=== PATIENT | male | born 1975 | race Caucasian/White ===

== ENCOUNTER → 2018-06-10 | Day surgery (SDC) | payer OTHER ==
[~2018-06-10] MED LIST: FENTANYL CITRATE/PF 100MCG/2 ML INJ ONE; GLUCAGON FOR INJ 1 MG VIAL ONE; HYOSCYAMINE SULFATE 0.5 MG/ML INJ ONE; LIDOCAINE HCL 2% LOCAL INJ 5 ML SDV VIAL INJ ONE; MIDAZOLAM HCL 2 MG/2 ML VIAL ONE; PROPOFOL IV EMULSION 10 MG/ML 50 ML VIAL ONE
[2018-06-10 15:45] VITALS: BP 117/82
--- NOTE | 2018-06-10 22:42 | Operative Report ---
DATE OF PROCEDURE: 06/10/2018 SURGEON: Rahul Dominguez MD PROCEDURES: Colonoscopy and polypectomy. INDICATION FOR COLONOSCOPY: Progressive constipation, crampy lower abdominal pain, history of bright red blood per rectum. MEDICATIONS: The patient was done under MAC. Please see anesthesiologist's note. PROCEDURE IN DETAIL: With the patient in left lateral decubitus position, a flexible fiberoptic Olympus colonoscope was inserted into the rectum with ease and advanced all the way to the cecum. It was then withdrawn slowly. Mucosa overlying the cecum, ascending colon, and transverse colon other than for a scattered diverticular disease appeared to be within normal limits. Diverticular disease was also noted in the left colon. Two polyps were snared from the descending colon. One polyp was snared. One polyp was hot biopsied from the sigmoid colon. Three polyps were hot biopsied from the rectum. The scope was then retroflexed into the distal rectum. Small internal hemorrhoids were noted, none of which was actively bleeding. The scope was then straightened out, it was subsequently withdrawn. The patient tolerated procedure well. IMPRESSION: 1. Diverticulosis. 2. Descending colon polyps x2 snared. 3. Sigmoid colon polyps x2, one snared, one hot biopsied. 4. Rectal polyps x3, hot biopsied. 5. Internal hemorrhoids none actively bleeding. PLAN: Follow up histology. Initiate high-fiber, low-fat diet. Initiate high-fiber supplement. Start VSL #3 one p.o. q.i.d. If the patient remains constipated then we will Linzess 145 mcg one p.o. q.a.m. a.c. The patient might benefit from a followup colonoscopy in 2 to 3 years. A total of seven polyps were removed. Rahul Dominguez MD [facility] [place] /[id number]
== END | disposition home or self-care (01) ==
LOC: OR 10:22
PROVIDERS: ATTEND Internal Medicine Gastroenterology
DX: K59.00 Constipation, unspecified (principal); D12.4 Benign neoplasm of descending colon; D12.5 Benign neoplasm of sigmoid colon; K57.30 Diverticulosis of large intestine without perforation or abscess without bleeding; K62.1 Rectal polyp; K64.8 Other hemorrhoids; R00.1 Bradycardia, unspecified; R03.0 Elevated blood-pressure reading, without diagnosis of hypertension; F17.290 Nicotine dependence, other tobacco product, uncomplicated; Z01.810 Encounter for preprocedural cardiovascular examination; Z68.27 Body mass index [BMI] 27.0-27.9, adult
CPT/HCPCS: 45384; 45385; 93005; J1610; J1980; J2001; J2250; J2704